=== PATIENT | male | born 1980 | race Caucasian/White ===

== ENCOUNTER → 2017-08-19 | Outpatient (CLI) | payer BC ==
[~2017-08-19] MED LIST: CETI5TAB2 PO; NASAL SPRAY; ZITH250T PO
--- NOTE | 2017-08-19 10:43 | RADRPT ---
EXAM DATE/TIME: 08/19/2017 00:00 [place] COMPARISON: No previous studies available for comparison. INDICATIONS : Intermittant dysphagia. FLUORO TIME: 2.0 minutes IMAGE COUNT: 0 CONTRAST: Dose as prescribed by speech pathologist. MEDICAL HISTORY : small hiatal hernia SURGICAL HISTORY : None. ENCOUNTER: Initial ACUITY: >1 year PAIN SCORE: 0/10 LOCATION: Bilateral neck FINDINGS: A modified barium swallow was performed with speech pathology. Patient was given a variety of liquids to swallow. There is coordinated mechanism of swallowing. No evidence of laryngeal penetration or aspiration. For a full detailed report, see report by the speech pathologist. CONCLUSION: No episodes of aspiration seen. Full report by speech pathology. Danish Nelson MD on August 19, 2017 at 10:40 Board Certified Radiologist. This report was verified electronically.
== END ==
LOC: HRAD 09:51
PROVIDERS: ATTEND Internal Medicine Gastroenterology
DX: R13.12 Dysphagia, oropharyngeal phase (principal)
CPT/HCPCS: 74230; 92611; G8996; G8997; G8998